=== PATIENT | female | born 1975 | race Caucasian/White ===

== ENCOUNTER 2018-08-12 15:03 | Emergency (ER) | payer MEDICAID, OTHER ==
[~2018-08-12] VITALS: Ht 149.9 cm; Wt 68.0 kg
[~2018-08-12 15:03] MED LIST: ALPR1TAB2 PO
--- NOTE | 2018-08-12 15:16 | NUR ---
Dr Newsome at the bedside for MSE.
[2018-08-12] MEDS ORDERED: ONDANSETRON ODT 4 MG TAB.RAPDIS ONE (15:29)
[2018-08-12] MEDS ORDERED: OXYCODONE/APAP 5-325 MG TABLET PO ONE (15:30)
[2018-08-12] MEDS ORDERED: OXYCODONE/APAP 5-325 MG TABLET ONE (15:30)
[2018-08-12] MEDS ORDERED: ONDANSETRON ODT 4 MG TAB.RAPDIS SL ONE (15:30)
[2018-08-12 16:35] VITALS: BP 110/82
--- NOTE | 2018-08-12 16:35 | NUR ---
Patient discharged to home in stable conditon. Written and verbal after care instructions given. Patient verbalizes understanding of instructions.
== END 2018-08-12 16:36 | disposition home or self-care (01) ==
LOC: ER 15:03
DX: M54.40 Lumbago with sciatica, unspecified side (principal); M54.12 Radiculopathy, cervical region; Z88.0 Allergy status to penicillin; Z79.899 Other long term (current) drug therapy
CPT/HCPCS: A4663; Q0162